=== PATIENT | male | born 1995 | race African-American/Black ===

== ENCOUNTER 2017-10-28 09:17 | Emergency (ER) | payer OTHER, SELFPAY | END 2017-10-28 10:09 | disposition home or self-care (01) | LOC: MADERS 09:17 | DX: L04.1 Acute lymphadenitis of trunk (principal); F17.210 Nicotine dependence, cigarettes, uncomplicated | CPT/HCPCS: 99283 ==

== ENCOUNTER 2017-11-27 21:41 | Emergency (ER) | payer SELFPAY | END 2017-11-27 22:36 | disposition home or self-care (01) | LOC: MADERS 21:41 | DX: H10.9 Unspecified conjunctivitis (principal); F17.210 Nicotine dependence, cigarettes, uncomplicated | CPT/HCPCS: 99282 ==